=== PATIENT | female | born 1975 | race Two or more races ===

== ENCOUNTER → 2024-05-20 | Outpatient (CLI) | payer MEDICAID, SELFPAY ==
--- NOTE | 2024-05-20 08:45 | XR_ITS ---
Examination: Breast ultrasound, unilateral, right complete Date and time of exam: May 20, 2024 0919 hours INDICATIONS: History left breast lumpectomy, patient states lumps in the right breast this month Technique: Real-time ly scale ultrasonographic imaging performed right breast including all 4 quadrants as well as nipple retroareolar and axillary region. Findings: 12:00 mass with indistinct margins 19 x 13 x 16 mm 12:00 cyst 25 x 11 x 23 mm 9:00 cyst 12 x 9 x 13 mm Retroareolar irregular mass 12 x 7 x 9 mm IMPRESSION: BI-RADS Category 4: Suspicious for malignancy Suspicious masses 12:00 retroareolar region right breast Biopsy of both masses is needed to exclude breast carcinoma, these masses are amenable to ultrasound-guided breast biopsy for diagnosis
--- NOTE | 2024-05-20 09:30 | XR_ITS ---
Examination: Diagnostic digital mammography, unilateral, right Computer aided detection 3-D breast Tomosynthesis, unilateral Date and time of exam: May 20, 2024 0948 hours Comparison to mammograms dating to 12/28/2016 INDICATIONS: Patient states right breast lump one year Technique: Nonmagnified MLO, CC views of the right breast have been obtained, reconstructed from 3-D Tomosynthesis images. R2 computer aided detection program utilized for evaluation of suspicious masses and/or abnormal calcifications. 3-D Tomosynthesis images obtained. Findings: The breast is heterogeneously dense, which may obscure small masses 30 mm nodule upper outer right breast fairly well marginated This may correspond to the 12:00 mass described on the right breast sonogram today, 12:00 position The ultrasound also describes retroareolar nodule with irregular margins 12 x 9 mm Impression: BI-RADS category 4: Suspicious for malignancy Suspicious masses right breast, better depicted on the right breast sonogram today Biopsy these masses is needed to exclude breast carcinoma These masses on the ultrasound in the 12:00 retroareolar region right breast are amenable to ultrasound-guided breast biopsy for diagnosis
== END | disposition home or self-care (01) ==
LOC: CDIM 08:54
PROVIDERS: PCP Family Medicine; Referring Provider Advanced Practice Midwife; Visit Provider Advanced Practice Midwife
DX: R92.341 Mammographic extreme density, right breast (principal); N63.15 Unspecified lump in the right breast, overlapping quadrants; N63.41 Unspecified lump in right breast, subareolar
CPT/HCPCS: 76641; 77061; 77065; G0279

== ENCOUNTER → 2024-09-17 | Outpatient (CLI) | payer MEDICAID, SELFPAY ==
[2024-09-16 09:57] LABS: Basophils % (Auto) 0 % (0-2.5); Eosinophils # (Auto) 0.2 Thou/mm3 (0.0-0.5); Eosinophils % (Auto) 3 % (0-10); Hematocrit 39.6 % (36.0-46.0); Hemoglobin 13.8 g/dL (12.0-16.0); Immature Granulocytes % (Auto) 0 % (0-0); Immature Granulocytes Auto 0.02 Thou/mm3 (0.00-0.00); Lymphocytes % (Auto) 29 % (10-50); Mean Corpuscular HGB Conc 34.8 g/dl (31.0-37.0); Mean Corpuscular Hemoglobin 29.1 pg (25.0-35.0); Mean Corpuscular Volume 83 fL (80-100); Monocytes # (Auto) 0.3 Thou/mm3 (0.0-0.8); Monocytes % (Auto) 5 % (0-12); Neutrophils # (Auto) 4.2 Thou/mm3 (1.8-7.7); Neutrophils % (Auto) 62 % (37-80); Nucleated Red Blood Cell % 0 /100 WBC (0); Platelet Count 253 Thou/mm3 (140-440); RDW Standard Deviation 39.8 fL (36.4-46.3); Red Blood Count 4.75 Miln/mm3 (4.00-5.20); White Blood Count 6.9 Thou/mm3 (3.6-11.0)
[2024-09-16 10:10] LABS: HCG,Qualitative Serum Negative
[2024-09-16 10:17] LABS: INR 0.9 (0.9-1.3); Partial Thromboplastin Time 27.1 Seconds (22.0-36.0); Prothrombin Time 10.2 Seconds (9.0-12.2)
--- NOTE | 2024-09-17 | XR_ITS ---
Examinations: Ultrasound-guided percutaneous breast biopsy, right breast retroareolar nodule Right breast sonography limited INDICATIONS: BI-RADS 4 suspicious nodule retroareolar region right breast on breast sonogram May 20, 2024. Exam date and time: September 17, 2024 1041 hours. Informed consent provided. Technique: A timeout was completed verifying correct patient, procedure, site, positioning, and special equipment if applicable Informed consent provided. The patient was placed in a supine position for the breast biopsy. Sonographic images of the breast were performed for localization of the suspicious nodule The patient's breast was prepped and draped in sterile fashion. Maximum sterile barrier technique, hand hygiene, ultrasound sterile technique 1% lidocaine was used to anesthetize the skin and breast adjacent to the suspicious nodule. Utilizing ultrasonographic guidance, 8 core biopsies were obtained of the suspicious nodule utilizing an 18-gauge BioPince needle. The specimens appears satisfactory. Estimated blood loss 3 cc. The patient tolerated the procedure well and there were no complications. Impression: Successful ultrasound-guided percutaneous breast biopsy, right breast retroareolar nodule.
--- NOTE | 2024-09-17 10:30 | XR_ITS ---
Examinations: Ultrasound-guided percutaneous breast cyst aspiration 12:00 right breast Right breast sonography limited Exam date and time: July 28, 2024 0919 hours INDICATIONS: Painful 12:00 right breast cyst noted on ultrasound May 20, 2024. Informed consent provided. Technique: A timeout was completed verifying correct patient, procedure, site, positioning, and special equipment if applicable Informed consent provided. The patient was placed in a supine position for the breast cyst aspiration Sonographic images of the breast were performed for localization of the 12:00 breast cyst The patient's breast was prepped and draped in sterile fashion. Maximum sterile barrier technique, hand hygiene, ultrasound sterile technique 1% lidocaine administered for local anesthesia. Utilizing ultrasonographic guidance successful aspiration of the 12:00 breast cyst 4 cc turbid fluid removed and sent for culture and sensitivity The patient tolerated the procedure well and there were no complications. Impression: Successful ultrasound-guided percutaneous aspiration right breast 12:00 cyst
== END | disposition home or self-care (01) ==
LOC: SIRX 09-18 08:23
PROVIDERS: Radiology Diagnostic Radiology; Referring Provider Surgery; Visit Provider Surgery
DX: D24.1 Benign neoplasm of right breast (principal); Z01.812 Encounter for preprocedural laboratory examination
CPT/HCPCS: 19083; 19084; 36415; 84703; 85025; 85610; 85730; A4648